=== PATIENT | male | born 1960 | race Caucasian/White ===

== ENCOUNTER 2017-02-28 12:48 | Emergency (ER) | payer BC ==
[~2017-02-28] VITALS: Ht 180.3 cm; Wt 85.9 kg
[2017-02-28 13:56] LABS: HEMATOCRIT 43.6 % (38.0-50.0); MCH 30.4 PG (29.0-34.0); MCHC 33.9 G/DL (30.0-36.0); MCV 89.5 FL (86-99); MEAN PLAT.VOLUME 8.7 uM^3 (9.0-12.4); PLATELET COUNT 227 K/uL (156-360); RBC DIS.WIDTH-CV 12.6 % (11.8-14.6); RBC DIS.WIDTH-SD 41.5 % (39-53); RED BLOOD COUNT 4.87 M/uL (4.00-5.50); WHITE BLOOD COUNT 4.5 K/uL (4.1-10.2)
[2017-02-28 14:06] LABS: CHLORIDE 106 mEq/L (99-109); POTASSIUM 4.3 mEq/L (3.7-5.4); SODIUM 140 mEq/L (136-147)
[2017-02-28 14:08] LABS: GLUCOSE 96 mg/dL (70-99)
[2017-02-28 14:09] LABS: ANION GAP 9 MEQ/L (2-14)
[2017-02-28 14:13] LABS: UREA NITROGEN (BUN) 20 mg/dL (9-23)
[2017-02-28 14:14] LABS: GFR ESTIMATE (CALCULATED) > 59 mL/min/
[2017-02-28 14:19] LABS: TROP-I INTERPRETATION NEGATIVE; TROPONIN-I < 0.01 ng/mL (0.0-0.30)
[2017-02-28 16:13] LABS: TROP-I INTERPRETATION NEGATIVE; TROPONIN-I < 0.01 ng/mL (0.0-0.30)
[2017-02-28 16:57] VITALS: BP 132/87
== END 2017-02-28 16:58 | disposition home or self-care (01) ==
LOC: EME 12:48
PROVIDERS: Physician Assistant
DX: R07.89 Other chest pain (principal); K21.9 Gastro-esophageal reflux disease without esophagitis; I10 Essential (primary) hypertension
CPT/HCPCS: 71020; 80048; 84484; 85027; 93005; 99281; 99284